=== PATIENT | male | born 1945 | race Two or more races ===

== ENCOUNTER 2018-05-07 07:07 | Outpatient (CLI) | payer OTHER | END 2018-05-07 07:23 | disposition home or self-care (01) | LOC: TOM 07:07 | DX: Z12.11 Encounter for screening for malignant neoplasm of colon (principal); K63.5 Polyp of colon ==

== ENCOUNTER 2018-05-13 08:09 | Outpatient (CLI) | payer OTHER | END 2018-05-13 08:17 | disposition home or self-care (01) | LOC: TOM 08:09 | DX: R93.3 Abnormal findings on diagnostic imaging of other parts of digestive tract (principal) | CPT/HCPCS: 74178; Q9965 ==